=== PATIENT | male | born 1980 | race Caucasian/White ===

== ENCOUNTER 2016-06-20 11:53 | Emergency (ER) | payer MEDICAID ==
[2016-06-20 13:06] LABS: Appearance,Urine Cloudy (Clear); Bacteria,Urine Rare /hpf; Bilirubin,Urine Negative (Negative); Glucose,Urine (UA) Negative (Negative); Ketones,Urine Negative (Negative); Leukocyte Esterase,Urine Negative (Negative); Mucus,Urine Occasional /hpf; Nitrite,Urine Negative (Negative); PH, Urine 5.5 (5.0-8.0); Particle Count 5109; Protein,Urine Trace (Negative); RBC,Urine 28 /hpf (0-5); Specific Gravity,Urine 1.016 (1.001-1.035); UA Billing (MACRO vs. MICRO) MICRO; WBC,Urine 2 /hpf (0-5)
--- NOTE | 2016-06-20 13:10 | XR ---
EXAMINATION TYPE: XR KUB DATE OF EXAM: 06/20/2016 12:57 PM CLINICAL DATA: 35-year-old male right-sided abdominal pain. COMPARISON: 07/31/2014 FINDINGS: Lung bases are clear. No evidence for free intraperitoneal air. No dilated small bowel or air-fluid levels. Scattered air seen throughout the colon extending distall y into the rectum. No suspicious calcifications identified. A phlebolith within the right hemipelvis was present on 2014. No definite suspicious calcification ra diographically apparent. IMPRESSION: 1. A right hemipelvic phlebolith was present in 2014. No definite suspicious radiographically apparen t calculus. 2.No evidence of bowel obstruction or free intraperitoneal air.
--- NOTE | 2016-06-20 13:12 | ED ---
Abdominal Pain HPI - General Chief Complaint: Abdominal Pain Stated Complaint: abd pain Time Seen by Provider: 06/20/16 12:22 Source: patient, RN notes reviewed Mode of arrival: ambulatory Limitations: no limitations - History of Present Illness Initial Comments: 35-year-old male presents emergency Department chief complaint right flank pain. Patient states he has some of the pain while sitting. Patient states that it radiates from his right back to his right lower quadrant. Patient states pain is a she subsided now. Patient states that nothing he did make it feel better or worse. Patient states he felt like he needed a paced around and states he just felt very uncomfortable. He had some nausea no vomiting no diarrhea no constipation. Patient has fevers chills. He states he did try to rest and states that he only had a few dribbles out. Patient states he noticed some hesitancy. But Denies any dysuria. - Related Data Home Medications Medication Instructions Recorded Confirmed Acetaminophen Tab [Tylenol Tab] 500 mg PO Q6HR 06/20/16 06/20/16 Previous Rx's Medication Instructions Recorded Hydrocodone/Acetaminophen [[place] 1 tab PO Q6HR PRN #20 tab 06/20/16 5-325] Ketorolac [Toradol] 10 mg PO Q8HR #15 tab 06/20/16 Allergies Allergy/AdvReac Type Severity Reaction Status Date / Time No Known Allergies Allergy Verified 06/20/16 12:23 Review of Systems ROS Statement: Those systems with pertinent positive or pertinent negative responses have been documented in the HPI. ROS Other: All systems not noted in ROS Statement are negative. Past Medical History Past Medical History: No Reported History Additional Past Medical History / Comment(s): HERNIA History of Any Multi-Drug Resistant Organisms: None Reported Past Surgical History: No Surgical Hx Reported Additional Past Surgical History / Comment(s): hernia repair x 4 Past Anesthesia/Blood Transfusion Reactions: No Reported Reaction Past Psychological History: No Psychological Hx Reported Smoking Status: Never smoker Past Alcohol Use History: Occasional Past Drug Use History: None Reported - Past Family History Mother Family Medical History: No Reported History General Exam Limitations: no limitations General appearance: alert, in no apparent distress Head exam: Present: atraumatic, normocephalic, normal inspection Respiratory exam: Present: normal lung sounds bilaterally. Absent: respiratory distress, wheezes, rales, rhonchi, stridor Cardiovascular Exam: Present: regular rate, normal rhythm, normal heart sounds. Absent: systolic murmur, diastolic murmur, rubs, gallop, clicks GI/Abdominal exam: Present: soft, normal bowel sounds. Absent: distended, tenderness, guarding, rebound, rigid Back exam: Present: full ROM. Absent: tenderness, CVA tenderness (R), CVA tenderness (L) Course Vital Signs 06/20/16 12:03 Temperature 97.6 F Pulse Rate 80 Respiratory 18 Rate Blood Pressure 133/83 O2 Sat by Pulse 96 Oximetry Medical Decision Making - Medical Decision Making 35-year-old male present emergency from for right flank pain. Patient's pain is a she subsided since coming to emergency department. Patient's pain is very consistent with kidney stone. I did recommend lab work, CT as he has no history. Patient is concerned about cost in time been in the emergency department. Patient did have urinalysis, x-ray. Patient does have hematuria. Consistent with kidney stone. Patient's pain is uncontrolled no pain medications at this time. Patient be discharged with pain medication and return parameters were discussed. - Lab Data Lab Results 06/20/16 Range/Units 12:50 Urine Color Yellow Urine Appearance Cloudy (Clear) Urine pH 5.5 (5.0-8.0) Ur Specific [place] 1.016 (1.001-1.035) Urine Protein Trace H (Negative) Urine Glucose (UA) Negative (Negative) Urine Ketones Negative (Negative) Urine Blood Small H (Negative) Urine Nitrate Negative (Negative) Urine Bilirubin Negative (Negative) Urine Urobilinogen 2.0 (<2.0) mg/dL Ur Leukocyte Esterase Negative (Negative) Urine RBC 28 H (0-5) /hpf Urine WBC 2 (0-5) /hpf Urine Bacteria Rare H (None) /hpf Urine Mucus Occasional H (None) /hpf Disposition Clinical Impression: Hematuria, Right flank pain Disposition: HOME SELF-CARE Condition: Stable Instructions: Kidney Stones (ED) Additional Instructions: Please return to the Emergency Department if symptoms worsen or any other concerns. Prescriptions: Hydrocodone/Acetaminophen [E[place] 5-325] 1 tab PO Q6HR PRN #20 tab PRN Reason: Pain Ketorolac [Toradol] 10 mg PO Q8HR #15 tab Referrals: Óscar Lockwood MD [Primary Care Provider] - 1-2 days Michael Peralta MD [STAFF PHYSICIAN] - 1-2 days Time of Disposition: 13:12
[2016-06-20 13:27] VITALS: BP 126/80; PULSE 76; RESP 20; TEMP 98
== END 2016-06-20 13:27 | disposition home or self-care (01) ==
LOC: EC 11:53
DX: R31.9 Hematuria, unspecified (principal)
CPT/HCPCS: 74000; 81001; 99284

== ENCOUNTER → 2018-12-09 | Outpatient (CLI) | payer MEDICAID ==
[2018-12-09 19:55] LABS: Basophils # (A) 0.1 k/uL (0-0.2); Basophils % (A) 1 %; Eosinophils # (A) 0.4 k/uL (0-0.7); Eosinophils % (A) 4 %; HCT 47.1 % (39.0-53.0); HGB 16.2 gm/dL (13.0-17.5); Lymphocytes # (A) 2.2 k/uL (1.0-4.8); Lymphocytes % (A) 21 %; MCH 29.5 pg (25.0-35.0); MCHC 34.5 g/dL (31.0-37.0); MCV 85.6 fL (80.0-100.0); Mean Platelet Volume 7.6; Monocytes # (A) 0.7 k/uL (0-1.0); Monocytes % (A) 7 %; Neutrophils # (A) 6.8 k/uL (1.3-7.7); Neutrophils % (A) 65 %; Platelet Count 242 k/uL (150-450); RDW 15.1 % (11.5-15.5); WBC 10.5 k/uL (3.8-10.6)
[2018-12-09 22:34] LABS: Erythrocyte Sedimentation Rate 4 mm/hr (0-15)
[2018-12-09 23:23] LABS: African American GFR (CKD) 96.8 (60.0-200.0); Anion Gap 11.1 mmol/L (4.00-12.00); BUN/Creat Ratio 13.64 Ratio (12.00-20.00); Calcium 9.6 mg/dL (8.7-10.3); Carbon Dioxide 25.9 mmol/L (21.6-31.8); Uric Acid 8.4 mg/dL (3.7-8.7)
== END | disposition home or self-care (01) ==
LOC: LABMAIN 18:48
PROVIDERS: ATTEND Family Medicine
DX: M79.672 Pain in left foot (principal)
CPT/HCPCS: 36415; 80048; 84550; 85025; 85652

== ENCOUNTER → 2018-12-09 | Outpatient (CLI) | payer MEDICAID ==
--- NOTE | 2018-12-09 19:03 | XR ---
EXAMINATION TYPE: XR ankle complete LT DATE OF EXAM: 12/09/2018 COMPARISON: NONE HISTORY: Ankle pain TECHNIQUE: 3 views FINDINGS: There is an Achilles calcaneal spur. Ankle mortise is anatomic. I see no fracture nor dislo cation. Subtalar joint appears normal. IMPRESSION: Calcaneal spurring. Otherwise negative exam.
--- NOTE | 2018-12-09 19:04 | XR ---
EXAMINATION TYPE: XR foot complete LT DATE OF EXAM: 12/09/2018 COMPARISON: NONE HISTORY: Pain TECHNIQUE: 3 views FINDINGS: Metatarsals are intact. There is an Achilles calcaneal spur. I see no fracture nor dislocat ion. There are no erosions. IMPRESSION: Calcaneal spurring. No fracture. No sign of inflammatory arthritis.
== END | disposition home or self-care (01) ==
LOC: RADXRMAIN 18:24
PROVIDERS: ATTEND Family Medicine
DX: M77.32 Calcaneal spur, left foot (principal); M77.31 Calcaneal spur, right foot

== ENCOUNTER 2019-10-06 08:42 | Emergency (ER) | payer MEDICAID ==
[2019-10-06 08:47] VITALS: BP 131/92; PULSE 79; RESP 18; TEMP 97.6
--- NOTE | 2019-10-06 09:22 | ED ---
General Adult HPI - General Chief complaint: Extremity Problem,Nontraumatic Stated complaint: knee pain Time Seen by Provider: 10/06/19 08:53 Source: patient, RN notes reviewed, old records reviewed Mode of arrival: ambulatory Limitations: no limitations - History of Present Illness Initial comments: 39-year-old male with 2 days of right knee pain and swelling. Patient denies specific injury or overuse. He noted some swelling and pain proximally 2 days ago. This is worse with standing. He denies fever or chills. Denies any constitutional symptoms, no abdominal pain, no chest pain, no shortness of breath, no vomiting. Patient denies pain distal to the knee. Normal sensation, no numbness or tingling. Patient is otherwise healthy with no medical problems. - Related Data Home Medications Medication Instructions Recorded Confirmed Ibuprofen [Motrin Ib] 600 mg PO Q8H PRN 10/06/19 10/06/19 Allergies Allergy/AdvReac Type Severity Reaction Status Date / Time No Known Allergies Allergy Verified 10/06/19 09:15 Review of Systems ROS Statement: Those systems with pertinent positive or pertinent negative responses have been documented in the HPI. ROS Other: All systems not noted in ROS Statement are negative. Past Medical History Past Medical History: No Reported History Additional Past Medical History / Comment(s): HERNIA History of Any Multi-Drug Resistant Organisms: None Reported Past Surgical History: Hernia Repair Additional Past Surgical History / Comment(s): hernia repair x 4 Past Anesthesia/Blood Transfusion Reactions: No Reported Reaction Past Psychological History: No Psychological Hx Reported Smoking Status: Never smoker Past Alcohol Use History: Occasional Past Drug Use History: None Reported - Past Family History Mother Family Medical History: No Reported History General Exam Limitations: no limitations General appearance: alert, in no apparent distress Head exam: Present: atraumatic, normocephalic Eye exam: Present: normal appearance, PERRL ENT exam: Present: normal exam Neck exam: Present: normal inspection. Absent: tenderness, meningismus Respiratory exam: Present: normal lung sounds bilaterally. Absent: respiratory distress, wheezes Cardiovascular Exam: Present: regular rate, normal rhythm GI/Abdominal exam: Present: soft. Absent: distended, tenderness, guarding Extremities exam: Present: other (Right lower extremity, distal pulses 2+, DP and PT. No calf tenderness, no lower tremor swelling. There is mild joint effusion of the right knee, no erythema, minimal warmth. Range of motion is normal, no significant pain with range of motion, tenderness to palpation in the suprapatellar region.) Course Vital Signs 10/06/19 08:43 Temperature 97.6 F Pulse Rate 79 Respiratory 18 Rate Blood Pressure 131/92 O2 Sat by Pulse 98 Oximetry Procedures - Orthopedic Splinting/Casting Injury #1 Side: right Lower Extremity Injury Location: knee Lower Extremity Immobilizer: Kirill wrap Additional Comments: Patient has normal neurovascular exam both before and after application of Kirill wrap Medical Decision Making - Medical Decision Making 39-year-old male with atraumatic right knee pain. Patient afebrile well- appearing. I have a low suspicion for septic arthritis. X-ray negative for fracture or dislocation. Patient will continue Motrin 600 mg 3 times daily, he will ice the extremity and elevated. Patient is reliable and will monitor for fever, pain with range of motion, any changing in his symptoms or worsening of symptoms to suggest an infectious process. He will follow-up with his primary care physician. Disposition Clinical Impression: Strain of right knee Disposition: HOME SELF-CARE Condition: Good Additional Instructions: Please continue 600 mg of Motrin 3 times daily, please elevate and ice the extremity, please follow up with her primary care physician for reevaluation. Please return to the emergency department with fever, worsening pain. Is patient prescribed a controlled substance at d/c from ED?: No Referrals: Óscar Lockwood MD [Primary Care Provider] - 1-2 days Time of Disposition: 09:40
--- NOTE | 2019-10-06 09:54 | XR ---
EXAMINATION TYPE: XR knee complete RT DATE OF EXAM: 10/06/2019 COMPARISON: NONE HISTORY: 39-year-old male with anterior knee pain TECHNIQUE: 3 views FINDINGS: Mild anterior soft tissue swelling. Extensor mechanism appears intact. Trace knee joint effusion. No acute fracture, subluxation, or dislocation seen. IMPRESSION: Mild anterior soft tissue swelling. Trace knee joint effusion. No acute osseous abnormality seen.
== END 2019-10-06 10:02 | disposition home or self-care (01) ==
LOC: EC 08:42
DX: S86.911A Strain of unspecified muscle(s) and tendon(s) at lower leg level, right leg, initial encounter (principal); X58.XXXA Exposure to other specified factors, initial encounter
CPT/HCPCS: 99284

== ENCOUNTER 2019-12-28 17:05 | Emergency (ER) | payer MEDICAID ==
[2019-12-28 17:11] VITALS: RESP 18; TEMP 97.5
[2019-12-28] MEDS ORDERED: KETOROLAC 15 MG/ML 1 ML VIAL IVP STA (17:14)
--- NOTE | 2019-12-28 17:24 | ED ---
Male Urogenital HPI - General Source: patient Mode of arrival: ambulatory Limitations: no limitations <Marilee Milton - Last Filed: 12/28/19 20:23> <Dana Bowen - Last Filed: 12/29/19 16:11> - General Chief complaint: Urogenital Stated complaint: flank pain Time Seen by Provider: 12/28/19 17:13 - History of Present Illness Initial comments: 39-year-old male presenting today for chief complaint of right flank pain radiating towards abdomen. Patient states he does have history of kidney stones and this feels similar. He states that the pain began approximately 2 hours ago suddenly. He states he has some difficulty urinating he does noting any gross hematuria. Denies fever chills general malaise. Denies chest pain shortness of breath.Patient has no additional complaints. Patient appears nontoxic on arrival. (Marilee Milton) - Related Data Home Medications Medication Instructions Recorded Confirmed Ibuprofen [Motrin Ib] 600 mg PO Q8H PRN 10/06/19 10/06/19 Previous Rx's Medication Instructions Recorded Ketorolac [Toradol] 10 mg PO Q8H PRN 3 Days #9 tab 12/28/19 Allergies Allergy/AdvReac Type Severity Reaction Status Date / Time No Known Allergies Allergy Verified 12/28/19 17:11 Review of Systems ROS Other: All systems not noted in ROS Statement are negative. <Marilee Milton - Last Filed: 12/28/19 20:23> ROS Other: All systems not noted in ROS Statement are negative. <Dana Bowen - Last Filed: 12/29/19 16:11> ROS Statement: Those systems with pertinent positive or pertinent negative responses have been documented in the HPI. Past Medical History Past Medical History: No Reported History Additional Past Medical History / Comment(s): HERNIA History of Any Multi-Drug Resistant Organisms: None Reported Past Surgical History: Hernia Repair Additional Past Surgical History / Comment(s): hernia repair x 4 Past Anesthesia/Blood Transfusion Reactions: No Reported Reaction Past Psychological History: No Psychological Hx Reported Smoking Status: Never smoker Past Alcohol Use History: Occasional Past Drug Use History: None Reported - Past Family History Mother Family Medical History: No Reported History <Marilee Milton - Last Filed: 12/28/19 20:23> General Exam Limitations: no limitations <Marilee Milton - Last Filed: 12/28/19 20:23> - General Exam Comments Initial Comments: General: The patient is awake and alert, in no distress, and does not appear acutely ill. Eye: Pupils are equal, round and reactive to light, extra-ocular movements are intact. No nystagmus. There is normal conjunctiva bilaterally. No signs of icterus. Cardiovascular: There is a regular rate and rhythm. No murmur, rub or gallop is appreciated. Respiratory: Lungs are clear to auscultation, respirations are non-labored, breath sounds are equal. No wheezes, stridor, rales, or rhonchi. Gastrointestinal: Soft, non-distended, non-tender abdomen without masses or organomegaly noted. There is no rebound or guarding present. No CVA tenderness. Musculoskeletal: Normal ROM, no tenderness. Strength 5/5. Sensation intact. Pulses equal bilaterally 2+. Neurological: A&O x 3. CN II-XII intact grossly, There are no obvious motor or sensory deficits. Coordination appears grossly intact. Speech is normal. Skin: Skin is warm and dry and no rashes or lesions are noted. Psychiatric: Cooperative, appropriate mood & affect, normal judgment. (Marilee Milton) Course Vital Signs 12/28/19 12/28/19 17:07 19:55 Temperature 97.5 F L 97.5 F L Pulse Rate 80 81 Respiratory 18 18 Rate Blood Pressure 162/114 130/93 O2 Sat by Pulse 100 100 Oximetry Medical Decision Making - Lab Data Result diagrams: 12/28/19 17:23 12/28/19 17:23 <Marilee Milton - Last Filed: 12/28/19 20:23> - Lab Data Result diagrams: 12/28/19 17:23 12/28/19 17:23 <Dana Bowen - Last Filed: 12/29/19 16:11> - Medical Decision Making [address] Patient has no evidence on urinalysis laboratory studies nor his vital signs concerning for septic stone. Patient's pain control emergency department at this time feel he is stable for discharge with outpatient urologic follow-up. Patient is agreeable to this care plan he is aware of return primary's including immediate return for 12 and a fever patient verbalized understanding and was discharged appearing well.Dr Bowen agreeable to care plan. (Marilee Milton) I was available for consultation in the emergency department. The history and physical exam were done by the midlevel provider. I was consulted for this patients care. I reviewed the case with the midlevel provider and based on their presentation of the patient, I agree with the assessment, medical decision making and plan of care as documented. Chart was dictated using [employer] dictation software. Attempts were made to correct any dictation errors however some typographical errors may persist. Patient was seen during a national state of emergency due to the Covid-19 pandemic. (Dana Bowen) - Lab Data Lab Results 12/28/19 12/28/19 12/28/19 Range/Units 17:23 17:23 17:23 WBC 8.7 (3.8-10.6) k/uL RBC 5.43 (4.30-5.90) m/uL Hgb 15.7 (13.0-17.5) gm/dL Hct 46.6 (39.0-53.0) % MCV 85.7 (80.0-100.0) fL MCH 28.9 (25.0-35.0) pg MCHC 33.8 (31.0-37.0) g/dL RDW 12.8 (11.5-15.5) % Plt Count 232 (150-450) k/uL Neutrophils % 72 % Lymphocytes % 15 % Monocytes % 7 % Eosinophils % 4 % Basophils % 1 % Neutrophils # 6.2 (1.3-7.7) k/uL Lymphocytes # 1.3 (1.0-4.8) k/uL Monocytes # 0.6 (0-1.0) k/uL Eosinophils # 0.3 (0-0.7) k/uL Basophils # 0.1 (0-0.2) k/uL Sodium 138 (137-145) mmol/L Potassium 3.9 (3.5-5.1) mmol/L Chloride 103 (98-107) mmol/L Carbon Dioxide 24 (22-30) mmol/L Anion Gap 11 mmol/L BUN 13 (9-20) mg/dL Creatinine 1.10 (0.66-1.25) mg/dL Est GFR (CKD-EPI)AfAm >90 (>60 ml/min/1.73 sqM) Est GFR (CKD-EPI)NonAf 83 (>60 ml/min/1.73 sqM) Glucose 112 H (74-99) mg/dL Calcium 9.3 (8.4-10.2) mg/dL Total Bilirubin 0.7 (0.2-1.3) mg/dL AST 44 (17-59) U/L ALT 53 H (4-49) U/L Alkaline Phosphatase 55 (38-126) U/L Total Protein 7.7 (6.3-8.2) g/dL Albumin 4.6 (3.5-5.0) g/dL Urine Color Yellow Urine Appearance Clear (Clear) Urine pH 5.5 (5.0-8.0) Ur Specific [place] 1.018 (1.001-1.035) Urine Protein Negative (Negative) Urine Glucose (UA) Negative (Negative) Urine Ketones Negative (Negative) Urine Blood Small H (Negative) Urine Nitrite Negative (Negative) Urine Bilirubin Negative (Negative) Urine Urobilinogen <2.0 (<2.0) mg/dL Ur Leukocyte Esterase Negative (Negative) Urine RBC 2 (0-5) /hpf Urine WBC 4 (0-5) /hpf Ur Squamous Epith Cells <1 (0-4) /hpf Calcium Oxalate Crystal Occasional H (None) /hpf Amorphous Sediment Rare H (None) /hpf Urine Mucus Occasional H (None) /hpf Disposition Is patient prescribed a controlled substance at d/c from ED?: No Time of Disposition: 19:35 <Marilee Milton - Last Filed: 12/28/19 20:23> <Dana Bowen - Last Filed: 12/29/19 16:11> Clinical Impression: Kidney stone on right side Disposition: HOME SELF-CARE Condition: Good Instructions (If sedation given, give patient instructions): Kidney Stones (ED) Additional Instructions: Please use medication as discussed. Please follow-up with urology in next week,immediate return for fevers. Please return to emergency room if the symptoms increase or worsen or for any other concerns. Prescriptions: Ketorolac [Toradol] 10 mg PO Q8H PRN 3 Days #9 tab PRN Reason: Severe Pain Referrals: Óscar Lockwood MD [Primary Care Provider] - 1-2 days Anton Martin MD [STAFF PHYSICIAN] - 1-2 days
[2019-12-28 17:46] LABS: Basophils # (A) 0.1 k/uL (0-0.2); Basophils % (A) 1 %; Eosinophils # (A) 0.3 k/uL (0-0.7); Eosinophils % (A) 4 %; HCT 46.6 % (39.0-53.0); HGB 15.7 gm/dL (13.0-17.5); Lymphocytes # (A) 1.3 k/uL (1.0-4.8); Lymphocytes % (A) 15 %; MCH 28.9 pg (25.0-35.0); MCHC 33.8 g/dL (31.0-37.0); MCV 85.7 fL (80.0-100.0); Mean Platelet Volume 7.7; Monocytes # (A) 0.6 k/uL (0-1.0); Monocytes % (A) 7 %; Neutrophils # (A) 6.2 k/uL (1.3-7.7); Neutrophils % (A) 72 %; Platelet Count 232 k/uL (150-450); RBC 5.43 m/uL (4.30-5.90); RDW 12.8 % (11.5-15.5); WBC 8.7 k/uL (3.8-10.6)
[2019-12-28 17:47] LABS: Amorphous Sediment,Urine Rare /hpf; Appearance,Urine Clear (Clear); Bilirubin,Urine Negative (Negative); Blood,Urine Small (Negative); Calcium Oxalate Crystals,Urine Occasional /hpf; Color,Urine Yellow; Glucose,Urine (UA) Negative (Negative); Ketones,Urine Negative (Negative); Leukocyte Esterase,Urine Negative (Negative); Mucus,Urine Occasional /hpf; Nitrite,Urine Negative (Negative); PH, Urine 5.5 (5.0-8.0); Protein,Urine Negative (Negative); RBC,Urine 2 /hpf (0-5); Specific Gravity,Urine 1.018 (1.001-1.035); Squamous Epithelial Cell,Urine <1 /hpf (0-4); Urobilinogen,Urine <2.0 mg/dL (<2.0); WBC,Urine 4 /hpf (0-5)
[2019-12-28 17:54] LABS: ALT 53 U/L (4-49); AST 44 U/L (17-59); African American GFR (CKD) >90 (>60 ml/min/1.73 sqM); Albumin 4.6 g/dL (3.5-5.0); Alkaline Phosphatase 55 U/L (38-126); Anion Gap 11 mmol/L; Blood Urea Nitrogen 13 mg/dL (9-20); Calcium 9.3 mg/dL (8.4-10.2); Carbon Dioxide 24 mmol/L (22-30); Chloride 103 mmol/L (98-107); Glucose 112 mg/dL (74-99); Non-African American GFR(CKD) 83 (>60 ml/min/1.73 sqM); Potassium 3.9 mmol/L (3.5-5.1); Sodium 138 mmol/L (137-145); Total Bilirubin 0.7 mg/dL (0.2-1.3); Total Protein 7.7 g/dL (6.3-8.2)
[2019-12-28] MEDS ORDERED: HYDROmorphone 0.5 MG/0.5 ML SYRINGE IVP STA (18:10)
--- NOTE | 2019-12-28 19:27 | CT ---
EXAMINATION TYPE: CT abdomen pelvis wo con DATE OF EXAM: 12/28/2019 COMPARISON: KUB 06/20/2016 HISTORY: RT SIDE FLANK PAIN, HX STONES CT DLP: 1029.4 mGycm Automated exposure control for dose reduction was used. TECHNIQUE: Helical acquisition of images was performed from the lung bases through the pelvis. FINDINGS: Within the limitations of noncontrast CT the following observations are made. LUNG BASES: No significant abnormality is appreciated. LIVER/GB: No significant abnormality is appreciated. PANCREAS: No significant abnormality is seen. SPLEEN: There is a 2 cm diameter focal hypodense splenic focus caudally. There are no prior imaging s tudies with which to compare. This is a nonspecific 2 cm splenic finding but usually reflects hemangi jazmyn, which can be proven with nonurgent follow-up targeted spleen ultrasound. ADRENALS: No significant abnormality is seen. KIDNEYS AND URETERS AND BLADDER: There is mild right-sided hydronephrosis and hydroureter consistent with mild obstructive uropathy on the right secondary to a 4 mm calcification at the distal most uret erovesical junction, almost within the urinary bladder lumen. In addition, there is a 1 mm calcificat ion within the distal right ureter, approximately 3 cm proximal to the UVJ. Both the right kidney and left kidneys each show two 1-2 mm nonobstructing calcifications. PERITONEAL CAVITY: No pneumoperitoneum or peritoneal fluid. RETROPERITONEAL ADENOPATHY: None visualized REPRODUCTIVE ORGANS: No significant abnormality is seen PELVIC ADENOPATHY: None visualized. OSSEOUS STRUCTURES: No significant abnormality is seen. BOWEL: No significant abnormality is seen. IMPRESSION: 1) POSITIVE FOR MILD RIGHT OBSTRUCTIVE UROPATHY SECONDARY TO 4 MM RIGHT UVJ CALCIFICATION. 2) Incidental 2 cm spleen hypodense focus, as discussed.
[2019-12-28 19:57] VITALS: BP 130/93; PULSE 81
== END 2019-12-28 19:56 | disposition home or self-care (01) ==
LOC: EC 17:05
DX: N20.0 Calculus of kidney (principal); Z87.19 Personal history of other diseases of the digestive system; Z98.890 Other specified postprocedural states
CPT/HCPCS: 36415; 80053; 85025; 81001; 74176; 96374; 96375; 99284; J1885; J1170

== ENCOUNTER → 2021-10-25 | Outpatient (CLI) | payer MEDICAID ==
--- NOTE | 2021-10-25 17:25 | XR ---
EXAMINATION TYPE: XR toes LT DATE OF EXAM: 10/25/2021 COMPARISON: NONE HISTORY: Redness and swelling TECHNIQUE: 3 views FINDINGS: There is soft tissue swelling at the medial aspect of the first metatarsal head. I see no f racture nor dislocation. There is some lucency in the medial subchondral region of the first metatars al head. There are small erosion at the medial base of the proximal phalanx. IMPRESSION: Bony changes at the first MP joint are nonspecific. This could be inflammatory arthritis which would include gout and rheumatoid arthritis. Septic arthritis also possible.
== END | disposition home or self-care (01) ==
LOC: RADXRMAIN 13:48
PROVIDERS: ATTEND Family Medicine
DX: M10.9 Gout, unspecified (principal)

== ENCOUNTER 2022-01-13 12:04 | Emergency (ER) | payer MEDICAID ==
[2022-01-13 12:09] VITALS: RESP 20; TEMP 98.1
[2022-01-13] MEDS ORDERED: KETOROLAC 15 MG/ML 1 ML VIAL IM STA (13:19)
--- NOTE | 2022-01-13 13:23 | ED ---
Lower Extremity Injury HPI - General Chief Complaint: Extremity Injury, Lower Stated Complaint: lt foot pain Time Seen by Provider: 01/13/22 13:14 Source: patient, RN notes reviewed, old records reviewed Mode of arrival: ambulatory Limitations: no limitations - History of Present Illness Initial Comments: 41-year-old well appearing male presents to the emergency room with complaints of left ankle pain and swelling for the past 3 days. Patient states he did not injure it. Ininitially started with pain of the plantar surface of the foot and progressed to pain of left lateral ankle that is worse with ambulation. Denies any fevers. No other joint pain. Patient states he does have a history of gout in the left great toe a couple of years ago. MD Complaint: other (left ankle pain) -: days(s) (3) Severity scale (1-10): 7 Improves With: nothing Worsens With: weight bearing Treatments Prior to Arrival: cold therapy, other (kirill wrap) - Related Data Home Medications Medication Instructions Recorded Confirmed Ibuprofen [Motrin Ib] 600 mg PO Q8H PRN 10/06/19 10/06/19 Previous Rx's Medication Instructions Recorded Ketorolac [Toradol] 10 mg PO Q8H PRN 3 Days #9 tab 12/28/19 Ibuprofen [Motrin] 800 mg PO Q6HR #30 tab 01/13/22 Allergies Allergy/AdvReac Type Severity Reaction Status Date / Time No Known Allergies Allergy Verified 01/13/22 12:09 Review of Systems ROS Statement: Those systems with pertinent positive or pertinent negative responses have been documented in the HPI. ROS Other: All systems not noted in ROS Statement are negative. Past Medical History Past Medical History: No Reported History Additional Past Medical History / Comment(s): HERNIA, GOUT History of Any Multi-Drug Resistant Organisms: None Reported Past Surgical History: Hernia Repair Additional Past Surgical History / Comment(s): hernia repair x 4 Past Anesthesia/Blood Transfusion Reactions: No Reported Reaction Past Psychological History: No Psychological Hx Reported Smoking Status: Never smoker Past Alcohol Use History: Occasional Past Drug Use History: None Reported - Past Family History Mother Family Medical History: No Reported History General Exam Limitations: no limitations General appearance: alert, in no apparent distress Respiratory exam: Absent: respiratory distress, accessory muscle use Cardiovascular Exam: Present: regular rate Left Ankle exam: Present: full ROM, tenderness, swelling (lateral malleolus). Absent: abrasion, laceration, crepitus, erythema Foot/Toe exam: Present: tenderness (Plantar surface). Absent: calcaneal tenderness, tenderness at base of 5th metatarsal Neurovascular tendon exam: Present: no vascular compromise. Absent: abnormal cap refill, extremity cold to touch, pallor, foot drop Neurological exam: Present: alert, oriented X3 Psychiatric exam: Present: normal affect, normal mood Skin exam: Present: warm, dry, normal color. Absent: cyanosis, diaphoretic, petechiae, pallor Course Vital Signs 01/13/22 01/13/22 12:07 14:22 Temperature 98.1 F Pulse Rate 94 92 Respiratory 20 20 Rate Blood Pressure 120/91 116/68 O2 Sat by Pulse 99 99 Oximetry Medical Decision Making - Medical Decision Making X-ray of the left ankle shows no evidence of fracture dislocation. There is soft tissue swelling of the ankle over the lateral malleolus. There is redemonstration of soft tissue swelling and bony changes of the first metatarsal head. This does not appear to be consistent with a gout flare, there is no erythema and minimal tenderness to palpation. This is more consistent with an ankle sprain which may be caused by plantar pain and change in the way he was ambulating. Patient instructed to take Motrin, rest ice and elevate while at home follow up with his primary care doctor this week. He is agreeable to this plan of care. Dr. Murphy at bedside to evaluate, agrees with this plan of care. Disposition Clinical Impression: Ankle pain, left Disposition: HOME SELF-CARE Condition: Good Instructions (If sedation given, give patient instructions): Swollen Joint (ED) Additional Instructions: Rest, ice, wear Kirill wrap and elevate while at home. Take Motrin every 8 hours for pain. Increase your fluid intake. Follow-up with the primary care doctor this week. Prescriptions: Ibuprofen [Motrin] 800 mg PO Q6HR #30 tab Is patient prescribed a controlled substance at d/c from ED?: No Referrals: Yosef Iglesias DO [Primary Care Provider] - 1-2 days Time of Disposition: 14:07
--- NOTE | 2022-01-13 13:53 | XR ---
EXAMINATION TYPE: XR ankle complete LT DATE OF EXAM: 01/13/2022 COMPARISON: Left toe radiograph 7-22. HISTORY: Pain and swelling TECHNIQUE: 3 views of the left ankle are submitted for evaluation. FINDINGS: There is no evidence for fracture or dislocation. Ankle mortise is intact. Soft tissue swel ling of the ankle most pronounced over the lateral malleolus. Posterior calcaneal spurring. Redemonst ration of soft tissue swelling and bony changes of the visualized first metatarsal head. IMPRESSION: 1. No evidence for acute fracture or dislocation. 2. Soft tissue swelling of the ankle most pronounced over the lateral malleolus.
[2022-01-13 14:23] VITALS: BP 116/68; PULSE 92
== END 2022-01-13 14:23 | disposition home or self-care (01) ==
LOC: EC 12:04
DX: M25.572 Pain in left ankle and joints of left foot (principal)
CPT/HCPCS: 73610; 99283; 96372; J1885

== ENCOUNTER 2024-10-15 14:20 | Emergency (ER) | payer BC, MEDICAID ==
--- NOTE | 2024-10-15 14:45 | ED ---
Lower Extremity Injury HPI - General Chief Complaint: Extremity Injury, Lower Stated Complaint: L ankle pain Time Seen by Provider: 10/15/24 14:30 Source: patient, RN notes reviewed Mode of arrival: ambulatory Limitations: no limitations - History of Present Illness Initial Comments: 44-year-old male presents emergency department complaining of left leg pain, left ankle pain. Patient states that he was on vacation he states unsure if he injured it but states he has pain in his distal leg and ankle. He states that sensitive to touch does have history of gout admits that he was on vacation drinking alcohol which is caused last time. Patient denies any weakness denies any back pain denies any bowel, bladder cons retention. - Related Data Home Medications Medication Instructions Recorded Confirmed Ibuprofen [Motrin Ib] 600 mg PO Q8H PRN 10/06/19 10/06/19 Previous Rx's Medication Instructions Recorded Ketorolac [Toradol] 10 mg PO Q8H PRN 3 Days #9 tab 12/28/19 Ibuprofen [Motrin] 800 mg PO Q6HR #30 tab 01/13/22 Indomethacin [Indocin] 50 mg PO TID #30 capsule 10/15/24 Allergies Allergy/AdvReac Type Severity Reaction Status Date / Time No Known Allergies Allergy Verified 10/15/24 14:36 Review of Systems ROS Statement: Those systems with pertinent positive or pertinent negative responses have been documented in the HPI. ROS Other: All systems not noted in ROS Statement are negative. Past Medical History Past Medical History: No Reported History Additional Past Medical History / Comment(s): HERNIA, GOUT History of Any Multi-Drug Resistant Organisms: None Reported Past Surgical History: Hernia Repair Additional Past Surgical History / Comment(s): hernia repair x 4 Past Anesthesia/Blood Transfusion Reactions: No Reported Reaction Past Psychological History: No Psychological Hx Reported Smoking Status: Never smoker Past Alcohol Use History: Occasional Past Drug Use History: None Reported - Past Family History Mother Family Medical History: No Reported History General Exam Limitations: no limitations General appearance: alert, in no apparent distress Head exam: Present: atraumatic, normocephalic, normal inspection Eye exam: Present: normal appearance, PERRL, EOMI. Absent: scleral icterus, conjunctival injection, periorbital swelling ENT exam: Present: normal exam, mucous membranes moist Respiratory exam: Present: normal lung sounds bilaterally. Absent: respiratory distress, wheezes, rales, rhonchi, stridor Cardiovascular Exam: Present: regular rate, normal rhythm, normal heart sounds. Absent: systolic murmur, diastolic murmur, rubs, gallop, clicks Extremities exam: Present: other (Left ankle there is increased warmth there is mild erythema noted, there cap refill less than 2 seconds there is diffuse tenderness to left ankle.) Neurological exam: Present: reflexes normal. Absent: motor sensory deficit Skin exam: Present: warm, dry, intact, normal color. Absent: rash Course Vital Signs 10/15/24 14:31 Temperature 98.5 F Pulse Rate 115 H Respiratory 20 Rate Blood Pressure 130/84 O2 Sat by Pulse 97 Oximetry Medical Decision Making - Medical Decision Making Was pt. sent in by a medical professional or institution (OLIVIA Dean, CLINICAL AUDITOR, urgent care, hospital, or alf...) When possible be specific @ -No Did you speak to anyone other than the patient for history (EMS, parent, family, police, friend...)? What history was obtained from this source @ -No Did you review nursing and triage notes (agree or disagree)? Why? @ -I reviewed and agree with nursing and triage notes Were old charts reviewed (outside hosp., previous admission, EMS record, old EKG, old radiological studies, urgent care reports/EKG's, alf records)? Report findings @ -No old charts were reviewed Differential Diagnosis (chest pain, altered mental status, abdominal pain women, abdominal pain men, vaginal bleeding, weakness, fever, dyspnea, syncope, headache, dizziness, GI bleed, back pain, seizure, CVA, palpatations, mental health, musculoskeletal)? @ -Ankle sprain ankle fracture doubt EKG interpreted by me (3pts min.). @ -None X-rays interpreted by me (1pt min.). @ -X-ray ankle shows no obvious acute fracture or soft tissue swelling noted CT interpreted by me (1pt min.). @ -None done U/S interpreted by me (1pt. min.). @ -Ultrasound left leg negative for acute DVT. What testing was considered but not performed or refused? (CT, X-rays, U/S, labs)? Why? @ -None What meds were considered but not given or refused? Why? @ -None Did you discuss the management of the patient with other professionals (professionals i.e. , PA, CLINICAL AUDITOR, lab, RT, psych nurse, geriatric social work professor, product craftsman, teacher, national service officer, case investigator)? Give summary @ -No Was smoking cessation discussed for >3mins.? @ -No Was critical care preformed (if so, how long)? @ -No Were there social determinants of health that impacted care today? How? (Homelessness, low income, unemployed, alcoholism, drug addiction, transportation, low edu. Level, literacy, decrease access to med. care, fpc, rehab)? @ -No Was there de-escalation of care discussed even if they declined (Discuss DNR or withdrawal of care, Hospice)? DNR status @ -No What co-morbidities impacted this encounter? (DM, HTN, Smoking, COPD, CAD, Cancer, CVA, ARF, Chemo, Hep., AIDS, mental health diagnosis, sleep apnea, morbid obesity)? @ -Gout Was patient admitted / discharged? Hospital course, mention meds given and route, prescriptions, significant lab abnormalities, going to OR and other pertinent info. @ -Discharge patient x-rays negative ultrasound negative patient may have underlying gout will be treated for gout, left ankle sprain return for as discussed. Undiagnosed new problem with uncertain prognosis? @ -No Drug Therapy requiring intensive monitoring for toxicity (Heparin, Nitro, Insulin, Cardizem)? @ -No Were any procedures done? @ -No Diagnosis/symptom? @ -Gout ankle sprain Acute, or Chronic, or Acute on Chronic? @ -Acute Uncomplicated (without systemic symptoms) or Complicated (systemic symptoms)? @ -Uncomplicated Side effects of treatment? @ -No Exacerbation, Progression, or Severe Exacerbation? @ -No Poses a threat to life or bodily function? How? (Chest pain, [place], [place], pneumonia, PE, COPD, DKA, ARF, appy, cholecystitis, CVA, Diverticulitis, Homicidal, Suicidal, threat to staff... and all critical care pts) @ -No Disposition Clinical Impression: Gout, Left ankle sprain Disposition: HOME SELF-CARE Condition: Stable Instructions (If sedation given, give patient instructions): Ankle Sprain (ED) Additional Instructions: Please return to the Emergency Department if symptoms worsen or any other concerns. Prescriptions: Indomethacin [Indocin] 50 mg PO TID #30 capsule Is patient prescribed a controlled substance at d/c from ED?: No Referrals: Yosef Iglesias DO [Primary Care Provider] - 1-2 days Time of Disposition: 15:46
--- NOTE | 2024-10-15 15:12 | XR ---
EXAMINATION TYPE: XR ankle complete LT DATE OF EXAM: 10/15/2024 3:04 PM COMPARISON: Ankle radiograph 01/13/2022. CLINICAL INDICATION: Male, 44 years old with history of pain; PHH, pain TECHNIQUE: XR ankle complete LT; ankle is imaged in frontal, lateral and oblique projections. FINDINGS: There is no evidence of acute osseous pathology. No evidence of subluxation or dislocation. Kager's fat pad is intact. No radiopaque foreign bodies are identified. IMPRESSION: 1. No evidence of acute fracture. 2. Subcutaneous swelling around the ankle likely secondary to underlying soft tissue injury. [facility], , 10/15/2024 3:09 PM
--- NOTE | 2024-10-15 15:38 | US ---
EXAMINATION TYPE: US venous doppler duplex LE LT DATE OF EXAM: 10/15/2024 3:27 PM COMPARISON: NONE CLINICAL INDICATION: Male, 44 years old with history of pain, recent traveling; lt leg pain, more in the ankle/foot x 4 days, pt recently traveled, no hx of dvt, n thinners TECHNIQUE: The lower extremity deep venous system is examined utilizing real time linear array sonog mart with graded compression, color doppler sonography, and spectral doppler. SIDE PERFORMED: Left FINDINGS: VESSELS IMAGED: Common Femoral Vein Deep Femoral Vein Greater Saphenous Vein * Femoral Vein Popliteal Vein Small Saphenous Vein * Proximal Calf Veins (* superficial vessels) Left Leg: appears negative for DVTshows patency of the vessels. Spectral waveforms are within normal limits. IMPRESSION: No ultrasound evidence for deep venous thrombosis. [facility], , 10/15/2024 3:36 PM
[2024-10-15] MEDS: DEXAMETHASONE SOD PHOSPHATE 10 MG/ML 1 ML VIAL IM STA (16:00)
[2024-10-15] MEDS: ACET/COD 300 MG/30 MG STARTER PACK 6 TAB BTL PO STA (16:00)
[2024-10-15 16:04] VITALS: BP 131/79; PULSE 99; RESP 18; TEMP 98.8
== END 2024-10-15 16:18 | disposition home or self-care (01) ==
LOC: EC 14:20
DX: S93.402A Sprain of unspecified ligament of left ankle, initial encounter (principal); M10.9 Gout, unspecified; X58.XXXA Exposure to other specified factors, initial encounter
CPT/HCPCS: 73610; 93971; 99284; 96372; J1100